=== PATIENT | female | born 1955 | race Caucasian/White ===

== ENCOUNTER 2019-04-27 12:15 | Emergency (ER) | payer OTHER ==
[~2019-04-27] VITALS: Ht 165.1 cm; Wt 98.9 kg
[2019-04-27] MEDS ORDERED: UNICOMPLEX M TA1 TA1 PO (12:27)
[2019-04-27] MEDS ORDERED: ESTRACE0.5 MG PO (12:27)
[2019-04-27] MEDS ORDERED: FISH OIL 1,001000 M2 PO (12:27)
[2019-04-27] MEDS ORDERED: GLYCOTROL CAPS1 EACH PO (12:27)
[2019-04-27] MEDS ORDERED: ZETIA10 MG PO (12:27)
[2019-04-27] MEDS ORDERED: ZOCOR 10 MG TAB10 M1 PO (12:27)
[2019-04-27 12:33] LABS: ABSOLUTE BASOPHILS 0.1 thou/uL (0.0-0.2); ABSOLUTE EOSINOPHILS 0.1 thou/uL (0.0-0.7); ABSOLUTE LYMPHOCYTES 1.8 thou/uL (0.8-5.3); ABSOLUTE MONOCYTES 0.5 thou/uL (0.0-1.2); ABSOLUTE NEUTROPHILS 4.2 thou/uL (1.6-8.1); BASOPHILS 0.8 %; EOSINOPHILS 2.2 %; HEMATOCRIT 40.7 % (37.0-47.0); HEMOGLOBIN 13.6 gm/dL (12.0-15.0); LYMPHOCYTES 26.8 %; MCH 29.3 pg (26.0-34.0); MCHC 33.3 g/dL (28.0-37.0); MCV 88.1 fL (80.0-100.0); MPV 9.7 fl. (7.2-11.1); NUCLEATED RBCS 0 /100WBC; PLATELET COUNT* 260 thou/uL (150-400); POLYS 63.2 %; RBC 4.62 mil/uL (4.20-5.00); RDW-CV 13.1 % (10.5-14.5); WBC 6.6 thou/uL (4.0-11.0)
[2019-04-27 12:44] LABS: ANION GAP 8 mmol/L (7-16); BUN 24 mg/dL (7-18); CALCIUM 8.8 mg/dL (8.5-10.1); CHLORIDE 105 mmol/L (98-107); CO2 27 mmol/L (21-32); CREATININE 0.9 mg/dL (0.6-1.3); GLUCOSE 91 mg/dL (70-99); SODIUM 140 mmol/L (136-145)
[2019-04-27 12:45] LABS: APTT 30.3 Seconds (25.0-31.3); PROTIME 10.4 Seconds (9.20-11.50)
[2019-04-27 12:55] LABS: ALBUMIN 3.8 g/dL (3.4-5.0); ALKALINE PHOSPHATASE 104 U/L (46-116); CK-MB MASS 1.1 ng/mL (<0.5-3.6); LIPASE 87 U/L (73-393); NT-PRO BRAIN NAT PEPTIDE 375 pg/mL (<300); SGOT 58 U/L (15-37); SGPT 85 U/L (30-65); TOTAL BILIRUBIN 0.5 mg/dL (<0.1-1.0); TOTAL PROTEIN 6.9 g/dL (6.4-8.2); TROPONIN-I LEVEL <0.06 ng/mL (<0.06)
[2019-04-27 16:25] VITALS: BP 110/79
--- NOTE | 2019-04-28 15:35 | EKG ---
[place] [address] ELECTROCARDIOGRAM REPORT Name: WELSHJAIMIE Room: [facility]#: [id number] Admission: 04/27/19 Attend Phys: Discharge: 04/27/19 Date of : 55 Report #: [id number] THIS REPORT FOR: //name// [facility] ED Test Date: 2019-04-27 Test Time: 12:19:08 Pat Name: JAIMIE WELSH Department: Room: Gender: F [employer] Operator: : 1955 Requested By: Med Domingo Order Number: [id number] MD: Luis Dorado Measurements Intervals [place] Rate: 63 P: 43 WI: 137 QRS: 15 QRSD: 98 T: 38 QT: 464 QTc: 476 Interpretive Statements Sinus rhythm Probable left atrial enlargement No previous ECG available for comparison Electronically Signed On 04-28-2019 15:35:23 CDT by Luis Dorado [email or web address] <ELECTRONICALLY SIGNED> By: Luis Dorado MD, [facility] 04/28/19 1535 1219 1219 Luis Dorado MD, FACC /EPI
== END 2019-04-27 16:25 | disposition home or self-care (01) ==
LOC: M.ERS 12:15
PROVIDERS: Emergency Medicine
DX: R07.89 Other chest pain (principal); Z88.5 Allergy status to narcotic agent; E78.00 Pure hypercholesterolemia, unspecified